=== PATIENT | female | born 1985 | race Caucasian/White ===

== ENCOUNTER → 2016-04-28 | Outpatient (CLI) | payer OTHER ==
[2016-04-29 07:26] LABS: ESTRADIOL 865.3 pg/mL (.); PROGESTERONE 49.4 ng/mL (.)
== END ==
LOC: OD 12:06
PROVIDERS: ATTEND Obstetrics & Gynecology Reproductive Endocrinology
DX: N97.9 Female infertility, unspecified (principal)
CPT/HCPCS: 36415; 82670; 84144

== ENCOUNTER → 2016-05-03 | Outpatient (CLI) | payer OTHER | LOC: OD 07:53 | PROVIDERS: ATTEND Obstetrics & Gynecology Reproductive Endocrinology | DX: Z32.00 Encounter for pregnancy test, result unknown (principal) | CPT/HCPCS: 36415; 84144; 84702 ==

== ENCOUNTER → 2016-06-07 | Outpatient (CLI) | payer OTHER | LOC: OD 07:30 | PROVIDERS: ATTEND Obstetrics & Gynecology Reproductive Endocrinology | DX: N97.9 Female infertility, unspecified (principal) | CPT/HCPCS: 36415; 84144; 84702 ==

== ENCOUNTER → 2016-06-09 | Outpatient (CLI) | payer OTHER ==
[2016-06-10 08:36] LABS: ESTRADIOL 551.2 pg/mL (.); PROGESTERONE 52.9 ng/mL (.)
== END ==
LOC: OD 11:43
PROVIDERS: ATTEND Obstetrics & Gynecology Reproductive Endocrinology
DX: Z32.01 Encounter for pregnancy test, result positive (principal)
CPT/HCPCS: 36415; 82670; 84144; 84443; 84702

== ENCOUNTER → 2016-06-16 | Outpatient (CLI) | payer OTHER ==
[2016-06-18 10:44] LABS: PROGESTERONE 58.9 ng/mL (.)
== END ==
LOC: OD 07:37
PROVIDERS: ATTEND Obstetrics & Gynecology Reproductive Endocrinology
DX: O09.00 Supervision of pregnancy with history of infertility, unspecified trimester (principal)
CPT/HCPCS: 36415; 82670; 84144; 84443; 84702

== ENCOUNTER → 2016-06-23 | Outpatient (CLI) | payer OTHER ==
[2016-06-24 07:08] LABS: PROGESTERONE 50.9 ng/mL (.)
== END ==
LOC: OD 07:21
PROVIDERS: ATTEND Obstetrics & Gynecology Reproductive Endocrinology
DX: O09.00 Supervision of pregnancy with history of infertility, unspecified trimester (principal)
CPT/HCPCS: 36415; 82670; 84144; 84443; 84702

== ENCOUNTER → 2016-06-30 | Outpatient (CLI) | payer OTHER ==
[2016-07-01 07:06] LABS: ESTRADIOL 562.1 pg/mL (.)
[2016-07-02 11:06] LABS: PROGESTERONE 73.5 ng/mL (.)
== END ==
LOC: OD 11:53
PROVIDERS: ATTEND Obstetrics & Gynecology Reproductive Endocrinology
DX: O09.00 Supervision of pregnancy with history of infertility, unspecified trimester (principal)
CPT/HCPCS: 36415; 82670; 84144; 84443; 84702

== ENCOUNTER 2018-11-16 05:30 | Day surgery (SDC) | payer OTHER ==
[2018-11-13 11:12] LABS: HEMATOCRIT 43.9 % (36.0-47.0); HEMOGLOBIN 15.5 g/dL (12.0-15.5); MEAN CORPUSCULAR HEMOGLOBIN 29.8 pg (27.0-33.4); MEAN CORPUSCULAR HGB CONC 35.2 g/dL (32.0-36.0); MEAN CORPUSCULAR VOLUME 85 fl (80-97); PLATELET COUNT 344 10^3/uL (150-450); RED BLOOD COUNT 5.18 10^6/uL (3.72-5.28); RED CELL DISTRIBUTION WIDTH 12.8 % (11.5-14.0); WHITE BLOOD COUNT 5.9 10^3/uL (4.0-10.5)
[2018-11-13 11:14] LABS: APPEARANCE,URINE CLEAR; BILIRUBIN,URINE NEGATIVE (NEGATIVE); COLOR,URINE YELLOW; GLUCOSE, URINE NEGATIVE (NEGATIVE); KETONES,URINE NEGATIVE (NEGATIVE); LEUKOCYTE ESTERASE,URINE NEGATIVE (NEGATIVE); NITRITE,URINE NEGATIVE (NEGATIVE); PROTEIN,URINE NEGATIVE (NEGATIVE); URINE SPECIFIC GRAVITY 1.025
[~2018-11-16 05:30] MED LIST: CEFAZOLIN 1 GM/D5W RTU 1 GM/50 ML RTUPB IV ONE; CEFAZOLIN 1 GM/D5W RTU 1 GM/50 ML RTUPB IV PRN
[2018-11-16] MEDS ORDERED: SUGAMMADEX SODIUM 200 MG/2 ML SDV IV ONE (07:00)
[2018-11-16] MEDS ORDERED: FENTANYL CITRATE INJ/PF 100 MCG/2 ML AMPUL ONE (07:00)
[2018-11-16] MEDS ORDERED: MIDAZOLAM 2 MG/2 ML INJ ONE (07:00)
[2018-11-16] MEDS ORDERED: LIDOCAINE 2% INJ-PF (100 MG/5 ML) SYRINGE ONE (07:00)
[2018-11-16] MEDS ORDERED: HYDROMORPHONE HCL INJ/PF 2 MG/ML AMPULE ONE (07:00)
[2018-11-16] MEDS ORDERED: PROPOFOL INJ 200 MG/20 ML VIAL IV ONE (07:01)
[2018-11-16] MEDS ORDERED: LIDOCAINE 1%/EPINEPHRINE INJ 20 ML VIAL ONE (07:10)
[2018-11-16] MEDS ORDERED: ESTROGENS,CONJUGATED 0.625 MG/1 GM 30 GM TUBE PV PRN (07:16)
[2018-11-16] MEDS ORDERED: DIPHENHYDRAMINE HCL 50 MG/ML VIAL IV PRN (08:04)
[2018-11-16] MEDS ORDERED: FENTANYL CITRATE INJ/PF 100 MCG/2 ML AMPUL IV PRN ×3 (08:04)
[2018-11-16] MEDS ORDERED: MEPERIDINE HCL/PF INJ 25 MG/1 ML DISP.SYRIN IV PRN (08:04)
[2018-11-16] MEDS ORDERED: ACETAMINOPHEN 1,000 MG/100 ML RTUPB IV ONE (09:51)
[2018-11-16] MEDS ORDERED: KETOROLAC TROMETHAMINE INJ/PF 30 MG/1 ML SDV ONE (09:51)
[2018-11-16] MEDS ORDERED: OXYCODONE-ACETAMINOPHEN 5-325 MG TABLET PO PRN (10:06)
[2018-11-16] MEDS ORDERED: MORPHINE SULFATE 10 MG/ML INJ IV PRN (10:25)
[2018-11-16] MEDS ORDERED: PHENYLEPHRINE HCL INJ/PF 10 MG/1 ML SDV ONE (10:29)
[2018-11-16] MEDS ORDERED: ONDANSETRON HCL INJ/PF 4 MG/2 ML SDV ONE ×2 (10:29→10:56)
[2018-11-16] MEDS ORDERED: GLYCOPYRROLATE 1 MG/5 ML VIAL ONE (10:29)
[2018-11-16] MEDS ORDERED: DEXAMETHASONE SOD PHOSPHATE INJ 4 MG/1 ML VIAL ONE (10:29)
--- NOTE | 2018-11-16 10:39 | Operative Report ---
Operative Report DATE OF SURGERY: 11/16/18 Operative Report: Anterior and posterior vaginal repair with transvaginal tape and cystoscopy PREOPERATIVE DIAGNOSIS: Uterovaginal prolapse and stress urinary incontinence POSTOPERATIVE DIAGNOSIS: Same OPERATION: Anterior and posterior repair with transvaginal tape and cystoscopy SURGEON: SULEIMAN GONZALEZ [employer] DISPATCHER: SEB ROSALES ANESTHESIA: GA TISSUE REMOVED OR ALTERED: vaginal mucosa COMPLICATIONS: none ESTIMATED BLOOD LOSS: 100 INTRAOPERATIVE FINDINGS: anterior and posterior prolapse. 5cc of PVR PROCEDURE: Patient was taken to the operating room prepared and draped in the normal steril e fashion in dorsolithotomy position in [facility]. A Pastrana catheter was placed to gravity with the above findings for PVR noted. The case was begun with the posterior repair. The posterior mucosa was injected with 10 cc of lidocaine with epi in the midline. The vaginal mucosa was grasped at the apex nearest the cervix with an Allis clamp and again at the posterior introitus. A aristides-shaped wedge of the vaginal mucosa at the posterior introitus was scored using the 15 blade and a midline incision was made with a 15 blade of the vaginal mucosa up to the apex. The vaginal mucosa was then dissected away using both blunt dissection and Metzenbaum's as needed recto- vaginal mucosa could accommodate a Raytek in both defects bilaterally. For support sutures of 2-0 Vicryl were placed to correct the rectocele defect. 2 sutures of 1-0 Vicryl were placed at the introitus for colporrhaphy support. The mucosa was then trimmed bilaterally and the mucosa was reapproximated using a runner of 2-0 Vicryl. Attention was then turned to the anterior aspect of the case a weighted speculum was placed into the vagina to hold the mucosa away from the anterior vaginal wall. Gating with a transvaginal tape the mucosa was scored approximately 1 cm below the urethral meatus vaginal mucosa was dissected away from the uterovaginal mucosa. Defect was expanded bilaterally using blunt dissection until the pubic bone could be palpated on both sides. The 15 blade was then used to score 2 small openings on the pubis approximately 5 cm on either side of the midline. Jyoti sling apical applicators were then pushed through these openings following the pubic bone and ending in the defect created of the vaginal vesical vaginal mucosa. Jyoti sling was then applied to the applicators anoscopy was performed and there was no defect noted in the bladder. The Jyoti sling was then deployed in the normal fashion with a Mague clamp between the vaginal tape and the urethra to ensure adequate room. The tape was then trimmed at the pubis incisions were closed with surgical glue. He was then turned to the anterior repair closing the vaginal mucosa with 2-0 Vicryl. The Pastrana catheter was placed to gravity. approximately 1 cm below the the defect for the tape the vaginal mucosa was scored in the midline and injected with lidocaine with epi uterovesical mucosa was then dissected away sharply using Metzenbaums and blunt dissection the support sutures were then placed using 2-0 Vicryl in a bridge fashion under the bladder the defect was felt to be adequately repaired the vaginal mucosa was trimmed and closed with 2-0 Vicryl once more. All instruments were then removed and the vagina was inspected. The vagina was then packed with a Kerlix soaked in Premarin cream. The case was then concluded the patient was taken to recovery in stable condition sponge lap needle counts were correct x2.
[2018-11-16] MEDS ORDERED: ONDANSETRON HCL INJ/PF 4 MG/2 ML SDV IV PRN (10:50)
[2018-11-16] MEDS: RINGERS SOLUTION,LACTATED 1,000 ML IV PRN ×3 (11:00→23:02)
[2018-11-16] MEDS ORDERED: PROMETHAZINE HCL INJ 25 MG/1 ML VIAL ONE (12:41)
[2018-11-16] MEDS ORDERED: RINGERS SOLUTION,LACTATED 500 ML IV PRN (12:55)
[2018-11-16] MEDS ORDERED: HYDROMORPHONE HCL INJ/PF 2 MG/ML AMPULE IV PRN (12:57)
[2018-11-16] MEDS: OXYCODONE-ACETAMINOPHEN 5-325 MG TABLET PO PRN (14:08)
[2018-11-16] MEDS: KETOROLAC TROMETHAMINE INJ/PF 30 MG/1 ML SDV IV SCH ×2 (16:12→17:58)
[2018-11-16] MEDS: DOCUSATE SODIUM 100 MG CAPSULE PO SCH (16:12)
[2018-11-16] MEDS: ESTROGENS,CONJUGATED 0.625 MG/1 GM 30 GM TUBE VG SCH ×2 (16:12→22:57)
[2018-11-16] MEDS ORDERED: ACETAMINOPHEN 1,000 MG/100 ML RTUPB IV SCH (18:00)
[2018-11-17] MEDS: KETOROLAC TROMETHAMINE INJ/PF 30 MG/1 ML SDV IV SCH (01:18)
--- NOTE | 2018-11-17 06:53 | PDOC DISCHARGE SUMMARY ---
General - Admit/Disc Date/PCP Admission Date/Primary Care Provider: MY CHÁVEZ MD Discharge Date: 11/17/18 - Additional Information Resuscitation Status: Full Code Discharge Diet: As Tolerated Discharge Activity: Balance Activity w/Rest, No Driving, No Lifting Over 10 Pounds, No Lifting/Push/Pulling, Pelvic Rest, No tub bath Prescriptions: Oxycodone HCl/Acetaminophen [Percocet 5-325 mg Tablet] 2 tab PO Q4HP PRN #30 tablet PRN Reason: Docusate Sodium [Colace 100 mg Capsule] 100 mg PO BID #60 capsule Estrogens,Conjugated [Premarin Vaginal Cream (0.625 mg/gm) 30 gm] 1 gm VG Q12 30 Days #1 tube Ibuprofen [Motrin 800 mg Tablet] 800 mg PO ONCE PRN #60 tablet PRN Reason: Home Medications: Medroxyprogesterone Acet [Depo-Provera Inj 150 mg/1 ml Vial] 150 mg IM ASDIR PRN 11/13/18 Sumatriptan Succinate [Imitrex 100 Mg Tablet] 100 mg PO ASDIR PRN 11/13/18 Docusate Sodium [Colace 100 mg Capsule] 100 mg PO BID #60 capsule 11/17/18 Estrogens,Conjugated [Premarin Vaginal Cream (0.625 mg/gm) 30 gm] 1 gm VG Q12 30 Days #1 tube 11/17/18 Ibuprofen [Motrin 800 mg Tablet] 800 mg PO ONCE PRN #60 tablet 11/17/18 Oxycodone HCl/Acetaminophen [Percocet 5-325 mg Tablet] 2 tab PO Q4HP PRN #30 tablet 11/17/18 History of Present Illness History of Present Illness: ASTRID ISBELL is a 33 year old female Hospital Course Hospital Course: underwent A&P repair with Jyoti TVT placement for uterovaginal prolapse and stress urinary incontinence. Unremarkable post op course. awaiting patient to void to be discharged Physical Exam - Physical Exam Vital Signs: Temp Pulse Resp BP Pulse Ox 98.8 F 65 16 85/49 L 98 11/17/18 01:29 11/17/18 01:29 11/17/18 01:29 11/17/18 01:29 11/17/18 01:29 Intake & Output 11/15/18 11/16/18 11/17/18 06:59 06:59 06:59 Intake Total 0 4542 Output Total 2540 Balance 0 2001 Weight 56.7 kg General appearance: PRESENT: no acute distress, cooperative GI/Abdominal exam: PRESENT: soft - appropriately tender for post operative state Result Laboratory Results: 11/13/18 10:38 Plan Discharge Plan: await void and when able patient to be discharged. If unable to void within 6 hours of catheter removal will send home with leg bag and remove catheter in one week. Time Spent: Less than 30 Minutes Acute Heart Failure - Is this a Heart Failure Patient?: No
[2018-11-17] MEDS: OXYCODONE-ACETAMINOPHEN 5-325 MG TABLET PO PRN (07:10)
[2018-11-17] MEDS ORDERED: IBUPROFEN 800 MG TABLET PO PRN (10:00)
[2018-11-17] MEDS: DOCUSATE SODIUM 100 MG CAPSULE PO SCH (10:07)
[2018-11-17 10:37] VITALS: BP 101/61
[2018-11-17] MEDS: ESTROGENS,CONJUGATED 0.625 MG/1 GM 30 GM TUBE VG SCH (10:48)
--- NOTE | 2018-11-17 14:33 | EKG REPORT ---
SEVERITY:- NORMAL ECG - SINUS ARRHYTHMIA, RATE [id number] : Confirmed by: Meryl William MD 17-Nov-2018 14:31:21
== END 2018-11-17 11:45 | disposition home or self-care (01) ==
LOC: OROUT 05:30 → 2S 10:20 → OROUT 11-17 11:45
PROVIDERS: ATTEND Obstetrics & Gynecology
DX: N81.6 Rectocele (principal); N39.3 Stress incontinence (female) (male)
CPT/HCPCS: 36415; 85027; 81005; 81025; 93005; 93010; 00942; 57260; 57288; C1781; J2250; J0690; J1100; J3490 ×5; J3010; J2001; J1885 ×2; J1170; J2370; J2550; J2405; J7120 ×2; J2704; J0131; 942